=== PATIENT | male | born 1975 | race African-American/Black ===

== ENCOUNTER 2024-05-10 23:25 | Inpatient (IN) | payer MEDICAID ==
[~2024-05-10] VITALS: Ht 167.6 cm; Wt 79.4 kg
[2024-05-11] MEDS ORDERED: VANCOMYCIN 1000MG/250ML 250 ML IV SCH
[2024-05-11 00:39] LABS: CHLORIDE 102 mEq/L (98-107); POTASSIUM 3.8 mEq/L (3.5-5.1); SODIUM 135 mEq/L (136-145)
[2024-05-11 00:40] LABS: CALCIUM 9.5 mg/dL (8.7-10.4); CARBON DIOXIDE 26 mEq/L (21-32)
[2024-05-11 00:42] LABS: HEMATOCRIT 42.7 % (42.0-52.0); HEMOGLOBIN 13.6 g/dL (14.0-18.0); MEAN CORPUSCULAR HEMOGLOBIN 31.6 pg (28.0-32.0); MEAN CORPUSCULAR HGB CONC 31.9 g/dL (31.0-37.0); MEAN CORPUSCULAR VOLUME 99.2 fL (80.0-94.0); PLATELET 129 x1000/uL (130-400); RED BLOOD CELL COUNT 4.31 mill/uL (4.7-6.1); RED CELL DISTRIBUTION WIDTH 20.3 % (11.6-14.6); WHITE BLOOD COUNT 4.4 x1000/uL (4.5-11.0)
[2024-05-11 00:45] LABS: GLUCOSE 122 mg/dL (70-105); UREA NITROGEN BLOOD 21 mg/dL (9-23)
[2024-05-11] MEDS: VANCOMYCIN 1G PREMIX 250 ML IV NR (02:57)
[2024-05-11 04:00] VITALS: BP 130/102; PULSE 98; RESP 20; TEMP 35.8362; O2SAT 99
[2024-05-11] MEDS ORDERED: IPRATROPIUM/ALBUTEROL 0.5-3(2.5)MG/3ML NEB HHN PRN (05:00)
[2024-05-11] MEDS ORDERED: ACETAMINOPHEN 325MG TABLET PO PRN ×2 (05:00)
[2024-05-11] MEDS ORDERED: GUAIFENESIN 200MG/10ML SUGAR FREE UDC PO PRN (05:00)
[2024-05-11] MEDS ORDERED: ONDANSETRON HCL 4MG/2ML INJ IV PRN (05:00)
[2024-05-11] MEDS ORDERED: DOCUSATE SODIUM 100MG CAPSULE PO PRN (05:00)
[2024-05-11] MEDS: SODIUM CHLORIDE 0.9% 1,000 ML IV SCH (06:16)
[2024-05-11] MEDS ORDERED: VANCOMYCIN 1G PREMIX 200 ML IV NR (06:43)
[2024-05-11 07:21] LABS: CLARITY URINE CLEAR (CLEAR); COLOR URINE DARK YELLOW (YELLOW); GLUCOSE URINE NEGATIVE (NEGATIVE); KETONES URINE NEGATIVE (NEGATIVE); LEUKOCYTE ESTERASE URINE NEGATIVE (NEGATIVE); NITRITE URINE NEGATIVE (NEGATIVE); OCCULT BLOOD URINE NEGATIVE (NEGATIVE); PROTEIN URINE 2+ (NEGATIVE); SPECIFIC GRAVITY URINE 1.025 (1.005-1.030); UROBILINOGEN URINE 0.2 E.U./dL (0.2-1.0)
[2024-05-11 07:58] LABS: *AMPHETAMINES SCREEN URINE NEGATIVE (NEGATIVE); *BARBITURATES SCREEN URINE NEGATIVE (NEGATIVE); *BENZODIAZEPINES SCREEN URINE NEGATIVE (NEGATIVE); *COCAINE SCREEN URINE NEGATIVE (NEGATIVE); CANNABINOID URINE SCREEN NEGATIVE (NEGATIVE); ECSTASY MDMA SCREEN URINE NEGATIVE (NEGATIVE); METHADONE URINE SCREEN NEGATIVE (NEGATIVE); OPIATES URINE SCREEN NEGATIVE (NEGATIVE); PHENCYCLIDINE URINE SCREEN NEGATIVE (NEGATIVE)
[2024-05-11 08:43] LABS: BACTERIA URINE NONE SEEN; HYALINE CASTS URINE 0-5 /lpf; RBC URINE 0-2 /hpf (0-2); SQUAMOUS EPITHELIAL CELL URINE RARE /lpf (RARE/1+); WBC URINE 0-2 /hpf (0-2); YEAST URINE NONE SEEN
[2024-05-11] MEDS: ENOXAPARIN 40MG/0.4ML SYR SUBCUT SCH (08:50)
[2024-05-11] MEDS: IPRATROPIUM/ALBUTEROL 0.5-3(2.5)MG/3ML NEB HHN SCH (09:12)
[2024-05-11 09:13] VITALS: PULSE 74; RESP 20
[2024-05-11] MEDS: VANCOMYCIN 1GM/200ML PMX (BAXTER) IV SCH (12:15)
[2024-05-11] MEDS ORDERED: DEXTROSE 50% WATER 50ML SYRINGE IV PRN (12:30)
[2024-05-11] MEDS: PIPERACILLIN/TAZO 3.375G/50ML 50 ML IV SCH (15:12)
[2024-05-11] MEDS: INSULIN LISPRO 100 UNITS/ML SUBCUT SCH (17:15)
[2024-05-11] MEDS: BLOOD SUGAR DIAGNOSTIC STRIP TEST SCH (17:44)
[2024-05-11 20:00] VITALS: BP 137/106; PULSE 90; RESP 16; TEMP 37.05852; O2SAT 98
[2024-05-11] MEDS: FAMOTIDINE 20MG TABLET PO SCH (21:00)
[2024-05-12] VITALS (9 sets, daily range): BP systolic 112–139; BP diastolic 75–107; PULSE 60–88; RESP 16–20; TEMP 35.89176–36.50292; O2SAT 85–100
[2024-05-12] MEDS ORDERED: LIDOCAINE HCL 1% 10 MG/ML 10ML VIAL ONE (12:25)
[2024-05-13] VITALS (7 sets, daily range): BP systolic 110–141; BP diastolic 77–103; PULSE 55–106; RESP 17–20; TEMP 36.05844–36.44736; O2SAT 93–100
[2024-05-13] MEDS: LORAZEPAM 2MG/ML INJ IM NR (12:47)
[2024-05-13] MEDS ORDERED: LIDOCAINE HCL 1% 10 MG/ML 10ML VIAL ONE (12:54)
[2024-05-13 18:00] LABS: BASOPHILS % 0.6 % (0.0-2.0); EOSINOPHILS % 0.3 % (0.0-5.0); HEMOGLOBIN. 12.1 g/dL (14.0-18.0); LYMPHOCYTES % 13.4 % (20.0-50.0); MEAN CORPUSCULAR HEMOGLOBIN 31.5 pg (28.0-32.0); MEAN CORPUSCULAR HGB CONC 32.6 g/dL (31.0-37.0); MEAN CORPUSCULAR VOLUME 96.7 fL (80.0-94.0); MEAN PLATELET VOLUME 8.4 fl (7.4-10.4); MONOCYTES % 10.6 % (2.0-8.0); NEUTROPHILS % 75.1 % (40.0-76.0); PLATELET 147 x1000/uL (130-400); RED BLOOD CELL COUNT 3.82 mill/uL (4.7-6.1); RED CELL DISTRIBUTION WIDTH 19.6 % (11.6-14.6); WHITE BLOOD COUNT 4.5 x1000/uL (4.5-11.0)
[2024-05-13 18:03] LABS: CHLORIDE 101 mEq/L (98-107); POTASSIUM 4.3 mEq/L (3.5-5.1); SODIUM 134 mEq/L (136-145)
[2024-05-13 18:04] LABS: CALCIUM 9.1 mg/dL (8.7-10.4); CARBON DIOXIDE 25 mEq/L (21-32)
[2024-05-13 18:05] LABS: INR 1.6; PROTHROMBIN TIME 16.9 sec (9.6-11.0)
[2024-05-13 18:09] LABS: GLUCOSE 189 mg/dL (70-105); UREA NITROGEN BLOOD 26 mg/dL (9-23)
[2024-05-13 18:11] LABS: ALANINE AMINOTRANSFERASE 68 IU/L (10-49); ALBUMIN 3.4 g/dL (3.2-4.8); ASPARTATE AMINOTRANSFERASE 50 IU/L (<34); BILIRUBIN TOTAL 2.4 mg/dL (0.1-1.0); PHOSPHORUS 3.3 mg/dL (2.5-4.9)
[2024-05-13] MEDS: LINEZOLID 600MG TABLET PO SCH (20:55)
[2024-05-13] MEDS: AMOXICILLIN/POTASSIUM CLAVULANATE 875/125MG TAB PO SCH (20:55)
[2024-05-13] MEDS: OLANZAPINE 10MG TABLET PO SCH (20:55)
[2024-05-13] MEDS ORDERED: IOHEXOL-350 100 ML BOTTLE ONE (23:14)
[2024-05-14 03:34] VITALS: PULSE 82; RESP 18; O2SAT 96
[2024-05-14 08:00] VITALS: BP 115/81; PULSE 104; RESP 20; TEMP 36.6696; O2SAT 100
[2024-05-14] MEDS: MAGNESIUM 4 G PREMIX 100 ML IV NR (08:30)
[2024-05-14] MEDS: FUROSEMIDE 40MG/4ML VIAL IVP SCH (10:50)
[2024-05-14] MEDS: APIXABAN 5 MG TABLET PO SCH (10:51)
[2024-05-14 12:00] VITALS: BP 90/54; PULSE 98; RESP 20; TEMP 36.6696; O2SAT 100
[2024-05-14] MEDS: LINEZOLID 600MG TABLET PO SCH (14:27)
[2024-05-14 16:00] VITALS: BP 122/99; PULSE 71; RESP 18; TEMP 36.05844; O2SAT 99
[2024-05-14 16:47] LABS: BASOPHILS % 0.8 % (0.0-2.0); EOSINOPHILS % 0.5 % (0.0-5.0); HEMATOCRIT. 37.8 % (42.0-52.0); HEMOGLOBIN. 12.4 g/dL (14.0-18.0); LYMPHOCYTES % 10.5 % (20.0-50.0); MEAN CORPUSCULAR HEMOGLOBIN 31.5 pg (28.0-32.0); MEAN CORPUSCULAR HGB CONC 32.8 g/dL (31.0-37.0); MEAN PLATELET VOLUME 8.2 fl (7.4-10.4); MONOCYTES % 11.8 % (2.0-8.0); NEUTROPHILS % 76.4 % (40.0-76.0); PLATELET 144 x1000/uL (130-400); RED BLOOD CELL COUNT 3.94 mill/uL (4.7-6.1); WHITE BLOOD COUNT 4.9 x1000/uL (4.5-11.0)
[2024-05-14 16:55] LABS: INR 1.6; PROTHROMBIN TIME 17.3 sec (9.6-11.0)
[2024-05-14 16:57] LABS: CHLORIDE 102 mEq/L (98-107); POTASSIUM 3.9 mEq/L (3.5-5.1); SODIUM 137 mEq/L (136-145)
[2024-05-14 16:58] LABS: CALCIUM 9.3 mg/dL (8.7-10.4); CARBON DIOXIDE 27 mEq/L (21-32)
[2024-05-14 17:03] LABS: CREATININE 1.1 mg/dL (0.6-1.3); GLUCOSE 192 mg/dL (70-105); UREA NITROGEN BLOOD 31 mg/dL (9-23)
[2024-05-14 17:05] LABS: PHOSPHORUS 3.7 mg/dL (2.5-4.9)
[2024-05-14 17:20] LABS: HEPATITIS B SURFACE ANTIGEN NEGATIVE (Negative)
[2024-05-14 17:40] LABS: HEPATITIS A AB IGM NEGATIVE (Negative)
[2024-05-14 17:41] LABS: HEPATITIS B CORE AB IGM NEGATIVE (Negative); HEPATITIS C AB NON REACTIVE (Neg) (Negative)
[2024-05-14 20:00] VITALS: BP 118/77; PULSE 55; RESP 18; TEMP 35.94732; O2SAT 99
[2024-05-14] MEDS: PHYTONADIONE 10MG/ML INJ SUBCUT NR (20:10)
[2024-05-14 21:30] VITALS: PULSE 76; RESP 18
[2024-05-15] VITALS (7 sets, daily range): BP systolic 110–137; BP diastolic 73–89; PULSE 71–85; RESP 18–20; TEMP 36.114–36.3918; O2SAT 95–99
[2024-05-15 10:11] LABS: BASOPHILS % 0.5 % (0.0-2.0); EOSINOPHILS % 0.4 % (0.0-5.0); HEMATOCRIT. 36.8 % (42.0-52.0); HEMOGLOBIN. 12.1 g/dL (14.0-18.0); LYMPHOCYTES % 7.9 % (20.0-50.0); MEAN CORPUSCULAR HEMOGLOBIN 31.6 pg (28.0-32.0); MEAN CORPUSCULAR HGB CONC 32.8 g/dL (31.0-37.0); MEAN CORPUSCULAR VOLUME 96.3 fL (80.0-94.0); MEAN PLATELET VOLUME 8.3 fl (7.4-10.4); MONOCYTES % 9.4 % (2.0-8.0); NEUTROPHILS % 81.8 % (40.0-76.0); PLATELET 132 x1000/uL (130-400); RED BLOOD CELL COUNT 3.82 mill/uL (4.7-6.1); RED CELL DISTRIBUTION WIDTH 19.9 % (11.6-14.6); WHITE BLOOD COUNT 5.6 x1000/uL (4.5-11.0)
[2024-05-15 10:25] LABS: INR 1.9; PROTHROMBIN TIME 20.4 sec (9.6-11.0)
[2024-05-15 12:59] LABS: CHLORIDE 104 mEq/L (98-107); POTASSIUM 4.5 mEq/L (3.5-5.1); SODIUM 139 mEq/L (136-145)
[2024-05-15 13:00] LABS: CARBON DIOXIDE 27 mEq/L (21-32)
[2024-05-15 13:01] LABS: CALCIUM 9.1 mg/dL (8.7-10.4)
[2024-05-15 13:05] LABS: CREATININE 1.1 mg/dL (0.6-1.3); GLUCOSE 154 mg/dL (70-105)
[2024-05-15 13:06] LABS: UREA NITROGEN BLOOD 36 mg/dL (9-23)
[2024-05-15 13:08] LABS: PHOSPHORUS 3.5 mg/dL (2.5-4.9)
[2024-05-15] MEDS: MAGNESIUM 1 G PREMIX 100 ML IV NR (15:16)
[2024-05-16 04:00] VITALS: BP 111/78; PULSE 77; RESP 20; TEMP 36.22512; O2SAT 99
[2024-05-16 08:00] VITALS: BP 131/95; PULSE 69; RESP 18; TEMP 36.44736; O2SAT 98
[2024-05-16 08:16] LABS: CARBON DIOXIDE 26 mEq/L (21-32); CHLORIDE 102 mEq/L (98-107); POTASSIUM 4.8 mEq/L (3.5-5.1); SODIUM 137 mEq/L (136-145)
[2024-05-16 08:17] LABS: CALCIUM 9.3 mg/dL (8.7-10.4)
[2024-05-16 08:21] LABS: CREATININE 1.4 mg/dL (0.6-1.3); GLUCOSE 219 mg/dL (70-105)
[2024-05-16 08:22] LABS: UREA NITROGEN BLOOD 35 mg/dL (9-23)
[2024-05-16 08:24] LABS: PHOSPHORUS 3.8 mg/dL (2.5-4.9)
[2024-05-16 08:35] LABS: HEMATOCRIT. 36.9 % (42.0-52.0); HEMOGLOBIN. 11.8 g/dL (14.0-18.0); MEAN CORPUSCULAR HEMOGLOBIN 30.9 pg (28.0-32.0); MEAN CORPUSCULAR HGB CONC 31.8 g/dL (31.0-37.0); MEAN CORPUSCULAR VOLUME 96.9 fL (80.0-94.0); MEAN PLATELET VOLUME 8.4 fl (7.4-10.4); PLATELET 127 x1000/uL (130-400); RED BLOOD CELL COUNT 3.81 mill/uL (4.7-6.1)
[2024-05-16 08:45] LABS: DIFFERENTIAL COMMENT 1
[2024-05-16] MEDS ORDERED: METF-414 PO (11:54)
[2024-05-16] MEDS ORDERED: BISO10TA28 PO (11:55)
[2024-05-16] MEDS ORDERED: APIX5TAB PO (11:55)
[2024-05-16] MEDS ORDERED: ATOR40TA70 PO (11:55)
[2024-05-16] MEDS ORDERED: FURO40TA5 PO (11:55)
[2024-05-16 12:00] VITALS: BP 135/75; PULSE 92; RESP 18; TEMP 36.05844; O2SAT 100
[2024-05-16] MEDS ORDERED: AMOX1TAB16 MT (12:06)
[2024-05-16] MEDS ORDERED: OLAN10TA72 MT (12:06)
[2024-05-16] MEDS ORDERED: LINE600T14 MT (12:06)
[2024-05-16 14:39] LABS: ANISOCYTOSIS 2+; PLATELET ESTIMATE SLIGHTLY DECREASED
[2024-05-16 16:00] VITALS: BP 124/85; PULSE 106; RESP 20; TEMP 36.114; O2SAT 99
[2024-05-16 20:00] VITALS: BP 131/80; PULSE 93; RESP 18; TEMP 36.28068; O2SAT 93
[2024-05-17] VITALS: BP 127/70; PULSE 85; RESP 18; TEMP 36.114; O2SAT 95
[2024-05-17 04:00] VITALS: BP 110/63; PULSE 60; RESP 18; TEMP 36.22512; O2SAT 95
[2024-05-17 08:00] VITALS: BP 107/77; PULSE 70; RESP 20; TEMP 35.8362; TEMP 35.83620; O2SAT 95
[2024-05-17 10:12] VITALS: BP 107/75; PULSE 70; TEMP 96.5; O2SAT 95
[2024-05-17] MEDS ORDERED: IBUP-2029 MT (12:14)
== END 2024-05-17 11:10 | disposition home or self-care (01) | DRG 383 ==
LOC: ER 23:37 → 5WST 05-11 03:02 → 6WST 05-11 23:14
PROVIDERS: ADMIT Internal Medicine; ATTEND Internal Medicine
PROC: 02HV33Z Insertion of Infusion Device into Superior Vena Cava, Percutaneous Approach (ICD-10-PCS; principal; 2024-05-13)
PROC: B548ZZA Ultrasonography of Superior Vena Cava, Guidance (ICD-10-PCS; 2024-05-13)
DX: L03.114 Cellulitis of left upper limb (principal); I31.39 Other pericardial effusion (noninflammatory); D68.9 Coagulation defect, unspecified; D69.6 Thrombocytopenia, unspecified; R18.8 Other ascites; F29 Unspecified psychosis not due to a substance or known physiological condition; D64.9 Anemia, unspecified; E11.9 Type 2 diabetes mellitus without complications; D72.819 Decreased white blood cell count, unspecified; K59.00 Constipation, unspecified; E83.42 Hypomagnesemia; I48.91 Unspecified atrial fibrillation; I50.22 Chronic systolic (congestive) heart failure; K74.60 Unspecified cirrhosis of liver; Z53.20 Procedure and treatment not carried out because of patient's decision for unspecified reasons; Z59.00 Homelessness unspecified; Z79.01 Long term (current) use of anticoagulants; Z56.0 Unemployment, unspecified
CPT/HCPCS: 36415; 36573; 71045; 73130; 73206; 76700; 76705; 80048; 80053; 80202; 80305; 81003; 82962; 83036; 83735; 83880; 84100; 84145; 85025; 85027; 86705; 86709; 87340; 93005; 93306; 93922; 93971; 94640; 99285; C1725; J1650; J1815; J1940; J2060; J2543; J3370; J3430; J3475; J3490; J7030; Q9967

== ENCOUNTER 2024-06-30 19:30 | Emergency (ER) | payer MEDICAID ==
[~2024-06-30] VITALS: Ht 167.6 cm; Wt 73.0 kg
[~2024-06-30 19:30] MED LIST: APIX5TAB PO; ASPI-1406 PO; ATOR40TA70 PO; CARV3.1242 PO; ESCI-7 PO; FURO-151 PO; LISI2.5T47 PO; OLAN10TA72 MT
[2024-06-30 19:39] VITALS: BP 103/73; PULSE 124; RESP 18; O2SAT 97
== END 2024-07-01 05:28 | disposition left against medical advice (07) ==
LOC: ER 19:30
DX: R55 Syncope and collapse (principal); E11.9 Type 2 diabetes mellitus without complications; Z79.01 Long term (current) use of anticoagulants; Z79.82 Long term (current) use of aspirin; Z79.899 Other long term (current) drug therapy; Z86.73 Personal history of transient ischemic attack (TIA), and cerebral infarction without residual deficits
CPT/HCPCS: 71045; 81003; 93005; 99283

== ENCOUNTER 2024-07-01 06:03 | Emergency (ER) | payer MEDICAID ==
[~2024-07-01] VITALS: Ht 167.6 cm; Wt 61.0 kg
[2024-07-01 06:10] VITALS: BP 116/72; PULSE 54; RESP 16; TEMP 97.6; O2SAT 99
== END 2024-07-01 09:22 | disposition left against medical advice (07) ==
LOC: ER 06:03
DX: M79.642 Pain in left hand (principal); Z53.21 Procedure and treatment not carried out due to patient leaving prior to being seen by health care provider
CPT/HCPCS: 73120